=== PATIENT | male | born 1980 | race Caucasian/White ===

== ENCOUNTER 2017-01-22 07:47 | Emergency (ER) | payer SELFPAY ==
[~2017-01-22] VITALS: Ht 177.8 cm; Wt 85.0 kg
[2017-01-22] MEDS ORDERED: DIPHTHERIA-TETANUS ADULT 0.5ML IM-VACC ONE (08:30)
[2017-01-22] MEDS ORDERED: LIDOCAINE 1%, 20ML SQ ONE (09:00)
== END 2017-01-22 11:54 | disposition home or self-care (01) ==
LOC: ED 09:37 → MERGE 09:37 → ED 11:54
DX: S02.31XA Fracture of orbital floor, right side, initial encounter for closed fracture (principal); S01.21XA Laceration without foreign body of nose, initial encounter; W01.0XXA Fall on same level from slipping, tripping and stumbling without subsequent striking against object, initial encounter; Y93.89 Activity, other specified; Y92.89 Other specified places as the place of occurrence of the external cause; Y99.8 Other external cause status
CPT/HCPCS: 70450; 70486; 72125; 90471; 90714